=== PATIENT | male | born 1980 | race Caucasian/White ===

== ENCOUNTER 2017-11-26 13:02 | Emergency (ER) | payer MEDICAID ==
[~2017-11-26] VITALS: Ht 167.6 cm; Wt 76.9 kg
[2017-11-26 13:36] VITALS: BP 136/94
--- NOTE | 2017-11-26 15:01 | NUR ---
PT AMBULATED TO BED 4
[2017-11-26] MEDS ORDERED: MORPHINE SULFATE 4 MG/ML SYR IM ONE (15:15)
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
--- NOTE | 2017-11-26 15:30 | NUR ---
WOUND CARE AT BEDSIDE BY EMT.
[2017-11-26 16:25] VITALS: BP 142/83
== END 2017-11-26 16:25 | disposition home or self-care (01) ==
LOC: MED 13:02
DX: S61.213A Laceration without foreign body of left middle finger without damage to nail, initial encounter (principal); E11.9 Type 2 diabetes mellitus without complications; Z79.899 Other long term (current) drug therapy; X58.XXXA Exposure to other specified factors, initial encounter; Y93.89 Activity, other specified; Y92.89 Other specified places as the place of occurrence of the external cause; Y99.8 Other external cause status
CPT/HCPCS: 96372; 99283; J2270

== ENCOUNTER 2019-11-27 01:10 | Inpatient (IN) | payer MEDICAID ==
[2019-11-27] VITALS (11 sets, daily range): BP systolic 97–163; BP diastolic 54–103
[~2019-11-27] VITALS: Ht 175.3 cm; Wt 69.9 kg
--- NOTE | 2019-11-27 01:15 | NUR ---
PT TAKEN TO BED 7
[2019-11-27] MEDS ORDERED: ONDANSETRON 4 MG/2 ML VIAL IVP ONE (01:20)
[2019-11-27] MEDS ORDERED: NACL 0.9% 1,000 ML IV ONE ×2 (01:20)
--- NOTE | 2019-11-27 01:21 | NUR ---
Dr. Madison examining patient.
[2019-11-27] MEDS ORDERED: LORazepam 2 MG/ML VIAL IVP ONE ×2 (01:25→02:25)
--- NOTE | 2019-11-27 01:38 | NUR ---
PT REFUSED TO ANSWER ASSESSMENT QUESTIONS AT THIS TIME. PT IS BEING RUDE AND UNCOOPERATIVE WITH CARE. WILL TRY AGAIN LATER TO GET ASSESSMENT DETAILS.
--- NOTE | 2019-11-27 01:40 | NUR ---
39 Y/O MALE C/O VOMITTING X TODAY. HAS > 6 VOMITTING EPISODES IN ER. LUNG SOUNDS CLEAR ALL THROUGHOUT.ABD IS SOFT, FLAT, GENERALIZED TENDERNESS OF THE ABD. ACTIVE BS. A&OX4. NKA. PMH: TYPE 1 DIABETES.
[2019-11-27 01:45] LABS: ALBUMIN 4.6 g/dL (3.4-5.0); ANION GAP 32.5 (8-16); CARBON DIOXIDE 15.5 mmol/L (21-32); CREATININE 1.4 mg/dL (0.6-1.3); TOTAL BILIRUBIN 0.6 mg/dL (0.0-1.0)
[2019-11-27 01:49] LABS: BASOPHILS # (AUTO) 0.1 K/uL (0.00-0.22); BASOPHILS % (AUTO) 0.8 % (0.0-2.0); EOSINOPHILS % (AUTO) 0.1 % (0.0-4.0); HEMATOCRIT 49.7 % (36-52); HEMOGLOBIN 16.9 g/dL (12.0-18.0); LYMPHOCYTES # (AUTO) 1.2 K/uL (2.0-11.5); LYMPHOCYTES % (AUTO) 9.9 % (20.5-51.1); MEAN CORPUSCULAR HEMOGLOBIN 31 pg (27-31); MEAN CORPUSCULAR HGB CONC 34 g/dL (33-37); MEAN CORPUSCULAR VOLUME 92.2 fL (80-94); MONOCYTES # (AUTO) 0.4 K/uL (0.8-1.0); MONOCYTES % (AUTO) 3.1 % (1.7-9.3); NEUTROPHILS # (AUTO) 10.3 K/uL (1.8-7.7); NEUTROPHILS % (AUTO) 86.1 % (42.2-75.2); PLATELET COUNT (AUTO) 295 K/uL (140-450)
[2019-11-27 01:55] LABS: APPEARANCE,URINE CLEAR (CLEAR); BILIRUBIN,URINE NEGATIVE (NEGATIVE); BLOOD, URINE 1+ (NEGATIVE); COLOR,URINE YELLOW (YELLOW); LEUKOCYTE ESTERASE ,URINE NEGATIVE (NEGATIVE); NITRITE, URINE NEGATIVE (NEGATIVE); PH,URINE 5.5 (5.0-9.0); UGLUCOSE 3+ (NEGATIVE)
[2019-11-27] MEDS ORDERED: INSULIN REGULAR, HUMAN 100 UNIT in NACL 0.9% 100 ML IV SCH ×2 (01:55)
[2019-11-27] MEDS ORDERED: DEXTROSE 50% 50 ML SYR IVP PRN ×3 (01:55→22:10)
[2019-11-27 02:05] LABS: WBC,URINE 0-5 /HPF (0-5)
[2019-11-27] MEDS ORDERED: MORPHINE SULFATE 4 MG/ML SYR IVP ONE (02:15)
[2019-11-27] MEDS ORDERED: ONDANSETRON 4 MG/2 ML VIAL IVP PRN (02:20)
[2019-11-27] MEDS ORDERED: HYDROcodone/APAP 7.5/325 MG 1 TAB PO PRN (02:20)
[2019-11-27] MEDS ORDERED: ACETAMINOPHEN 325 MG TAB PO PRN (02:20)
[2019-11-27] MEDS: BLOOD GLUCOSE MONITORING 1 DEV DEV FS SCH ×26 (02:20→22:05)
[2019-11-27] MEDS ORDERED: diphenhydrAMINE 50 MG/ML VIAL IVP ONE (02:25)
[2019-11-27] MEDS ORDERED: METOCLOPRAMIDE 10 MG/2 ML INJ VIAL IVP ONE (02:25)
[2019-11-27] MEDS ORDERED: POTASSIUM CHL 20 MEQ/NACL 0.9% 1,000 ML IV ONE ×2 (02:45→05:02)
[2019-11-27 02:53] LABS: PROTHROMBIN TIME 9.2 secs (10.8-13.4)
[2019-11-27] MEDS ORDERED: INSULIN REGULAR IV SCH ×2 (02:55)
[2019-11-27] MEDS ORDERED: POTASSIUM CHLORIDE 20 MEQ in NACL 0.9% 1,000 ML IV SCH (02:55)
[2019-11-27] MEDS ORDERED: LORazepam 2 MG/ML VIAL IVP SCH (02:55)
[2019-11-27] MEDS ORDERED: HYDROmorphone 1 MG/ML AMP IVP SCH (02:55)
[2019-11-27] MEDS ORDERED: HUMAN IV SCH ×2 (02:55)
[2019-11-27] MEDS ORDERED: NACL 0.9% IV SCH ×2 (02:55)
[2019-11-27 02:56] LABS: FREE T4 (FREE THYROXINE) 1.5 ng/dL (0.76-1.46); MAGNESIUM 2.2 mg/dL (1.8-2.4); PHOSPHORUS 5.5 mg/dL (2.5-4.9); THYROID STIMULATING HORMONE 2.27 uIU/mL (0.34-3.74)
--- NOTE | 2019-11-27 03:40 | NUR ---
X-Ray at bedside.
--- NOTE | 2019-11-27 03:50 | NUR ---
PATIENT BROUGHT INTO ICU BED 3 VIA GURNEY, AMBULATED TO BED WITH STANDBY ASSIST. RECEIVED REPORT FROM ER NURSE. RESIDENT MD AT BEDSIDE TO ASSESS PATIENT. PT ANOx4, OPENS EYES SPONTANEOUSLY, FOLLOWS ALL COMMANDS. EYES PERRLA, BRISK 3 MM. SKIN WARM AND DRY, TEMPERATURE LOW 96.0 TEMPORAL. ON ROOM AIR, LUNG SOUNDS CLEAR ALL THROUGHOUT, NO SIGNS OF SOB OR DISTRESS, BREATHING IS UNLABORED. CONNECTED TO RUBY ON RAILS SOFTWARE DEVELOPER, HEART RATE 115 BPM. RIGHT FOREARM PERIPHERAL IV 20G, FLUSHED AND PATENT WITHOUT SYMPTOMS, INFUSING HUMULIN INSULIN DRIP AT 3UNITS/HR-3ML/HOUR. AND LEFT AC 20G, FLUSHED AND ASYMPTOMATIC INFUSING 20 MEQ KCL WITH NS @ 1000ML/HR. DRY WEIGHT USED 70 KG. ABDOMEN IS SOFT AND NONTENDER WITH ACTIVE BOWEL SOUNDS, PT IS CONTINENT, URINAL AT BEDSIDE. SKIN INTACT. ORIENTED TO CALL LIGHT AND UNIT. ORIENTED TO TREATMENT PLAN. SIDERAILS UP x3, BED LOCKED AND IN LOWEST POSITION. MRSA SWAB COLLECTED AND TAKEN TO LAB. WILL CONTINUE TO MONITOR.
--- NOTE | 2019-11-27 03:50 | NUR ---
Patient will be admitted to care of dr. hutson. Admited to icu . Will go to room 3. Belongings list completed. Report to patience parra.
[2019-11-27 04:29] LABS: ANION GAP 21.2 (8-16); CARBON DIOXIDE 20.2 mmol/L (21-32); POTASSIUM 4.4 mmol/L (3.5-5.1)
[2019-11-27 04:30] LABS: BARBITURATE, URINE NEGATIVE ng/ml (NEG <=200); BENZODIAZEPINE, URINE NEGATIVE ng/mL (NEG <=200); CANNABINOID, URINE POSITIVE ng/mL (NEG <=50); COCAINE, URINE NEGATIVE ng/mL (NEG <=300); OPIATE, URINE NEGATIVE ng/mL (NEG <=2000); PHENCYCLIDINE SCREEN,URINE NEGATIVE ng/mL (NEG <=25)
--- NOTE | 2019-11-27 04:30 | NUR ---
PROVIDED PATIENT WITH ORAL CARE SUPPLIES AND HYGIENE SUPPLIES. PATIENT INDEPENDENT. MORNING CARE DONE.
[2019-11-27 04:34] LABS: MAGNESIUM 1.7 mg/dL (1.8-2.4)
[2019-11-27 04:35] LABS: CHOL/HDL RATIO 8.8 (1-4.5)
[2019-11-27] MEDS ORDERED: INSU100I7 SQ (05:05)
[2019-11-27] MEDS ORDERED: HUM SUBQ (05:05)
[2019-11-27] MEDS ORDERED: ENAL-197 PO ×2 (05:05→18:36)
[2019-11-27] MEDS ORDERED: MAG SULF 2000 MG/WATER PREMIX 50 ML IV SCH (05:10)
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
--- NOTE | 2019-11-27 05:30 | NUR ---
BLOOD SUGAR 142, DECREASED INSULIN DRIP TO 0.05UNITS/KG PER PROTOCOL.
--- NOTE | 2019-11-27 06:45 | NUR ---
BLOOD SUGAR 118, CALLED RESIDENT MD TO CONFIRM PROTOCOL. OK TO START D51/2NS FLUIDS AND D/C NS WITH 20 MEQ KCL. WILL CARRY OUT.
[2019-11-27] MEDS: DEXT 5% / NACL 0.45% 1,000 ML IV SCH ×3 (06:54→17:06)
--- NOTE | 2019-11-27 08:00 | NUR ---
PATIENT ALERT AND ORIENTED X4. ABLE TO VOICE HIS NEEDS TO STAFF. RESPIRATION EVEN AND UNLABORED. ORAL MUCOSA PINK AND MOIST. NO SIGNS OF DISTRESS OBSERVED. SKIN WARM, DRY AND INTACT. NO COMPLAINTS OF PAIN OR ANY DISCOMFORT. PT ON IV HYDRATION, INSULIN DRIP. ABDOMEN SOFT AND NON TENDER. USES URINAL TO VOID. LAST BM WAS YESTERDAY MORNING. DORSAL PEDIS PULSES PALPABLE AND WNL. HAND DIRECTOR SALES AND TRADE MARKETING STRONG. NO SIGNS OF WEAKNESS NOTED. EYE OPENING SPONTANEOUSLY. POC REVIEWED. STANDARD MEASURES PERFORMED. WILL CONTINUE TO MONITOR PATIENT.
[2019-11-27] MEDS: DOCUSATE SODIUM 100 MG GELCAP PO SCH ×2 (08:27→20:50)
[2019-11-27] MEDS: ENALAPRIL 10 MG TAB PO SCH (08:27)
--- NOTE | 2019-11-27 08:34 | NUR ---
PATIENT HAS BEEN SCREENED AND CATEGORIZED HIGH NUTRITION RISK. PATIENT WILL BE SEEN WITHIN 1-2 DAYS OF ADMISSION. 11/27/19-11/28/[address]
[2019-11-27 08:45] LABS: ANION GAP 15.8 (8-16); CREATININE 0.9 mg/dL (0.6-1.3); POTASSIUM 3.8 mmol/L (3.5-5.1)
[2019-11-27 08:50] LABS: MAGNESIUM 1.8 mg/dL (1.8-2.4); PHOSPHORUS 2.6 mg/dL (2.5-4.9)
[2019-11-27] MEDS ORDERED: POTASSIUM CHL 20 MEQ/NACL 0.9% 1,000 ML IV SCH (10:40)
[2019-11-27 11:17] LABS: ANION GAP 17.9 (8-16); CARBON DIOXIDE 20.9 mmol/L (21-32); POTASSIUM 3.8 mmol/L (3.5-5.1)
[2019-11-27 11:18] LABS: CREATININE 0.9 mg/dL (0.6-1.3)
--- NOTE | 2019-11-27 11:19 | NUR ---
CALLED DR. GILBERT AT THIS TIME. CLAFIED ORDER FOR KCL 20MEQ IV. ORDER CHANGED FROM 200ML TO 100ML PER HOUR. PATIENT MADE AWARE.
[2019-11-27 12:53] LABS: MAGNESIUM 2.2 mg/dL (1.8-2.4); PHOSPHORUS 2.8 mg/dL (2.5-4.9)
--- NOTE | 2019-11-27 13:08 | NUR ---
11/27/19 RD INITIAL ASSESSMENT COMPLETED PLEASE REFER TO NUTRITION ASSESSMENT UNDER CARE ACTIVITY FOR ESTIMATED NUTRITIONAL NEEDS. 1. CONTINUE NPO MEDICALLY APPROPRIATE 2. IF/WHEN PATIENT IS MEDICALLY CLEARED CONSIDER ADVANCING TO [facility] 60GM DIET 3. RD PROVIDED NUTRITION EDUCATION ON DIABETES. PT ACCEPTED 4. RD TO FOLLOW-UP 3-5 DAYS, MODERATE RISK IRINA QUINTERO RD
--- NOTE | 2019-11-27 13:11 | NUR ---
DC PLANN[age] YRS OLD MALE PATIENT WAS ADMITTED FROM HOME WITH A DX OF DKA. PT HAS A HX OF DM AND HYPERTENSION . BLOOD SUGAR 435 AND ANION GAP 28.5 .CXRAY (-) ,STARTED INSULIN DRIP, IVF HYDRATION WITH NS , HUMALOG SLIDING SCALE . SEEN BY TELECOMMUNICATIONS LINE MECHANIC DR BECERRA RECOMMENDED TO CONTINUE DKA PROTOCOL . DC PLAN TO GO HOME WHEN STABLE Addendum: 11/30/19 at 1103 by Jayna De Luna CM PATIENT WILL BE DISCHARGING TODAY, NO NEEDS. Addendum: 11/30/19 at 1108 by Jayna De Luna CM WRONG ENTRY: PATIENT WILL BE STAYING TODAY DUE TO LOW POTASSIUM AND MAG.
[2019-11-27] MEDS ORDERED: SERTRALINE 50 MG TAB PO SCH (13:30)
[2019-11-27] MEDS ORDERED: LORazepam 2 MG/ML VIAL IM/IVP PRN (16:15)
--- NOTE | 2019-11-27 16:40 | NUR ---
PATIENT BECAME AGITATED, PULLING IV TUBINGS AND REFINERY OPERATOR VAPOR RECOVERY UNIT WIRES, REFUSING CARE. PT REQUESTING FOR FOOD BUT PT IS CURRENTLY ON NPO EXCEPT MEDS.OFFERED SOME JELLO PER MD BUT STILL REFUSE. PT WANTED TO SIGN AMA AT THIS TIME. DR. FERRERA MADE AWARE AND CAME TO THE UNIT TO SEE AND TALK TO THE PATIENT. MD ORDERED FOR ATIVAN 1MG. PT CALM DOWN AND PARTICIPATED IN THE ROUTINES. PT RESTING AT THIS TIME. WILL CONTINUE TO MONITOR.
[2019-11-27 16:53] LABS: ANION GAP 13.3 (8-16); CREATININE 0.8 mg/dL (0.6-1.3); POTASSIUM 3.3 mmol/L (3.5-5.1)
[2019-11-27 16:58] LABS: PHOSPHORUS 2.8 mg/dL (2.5-4.9)
[2019-11-27] MEDS ORDERED: LORazepam 2 MG/ML VIAL IVP PRN (18:05)
[2019-11-27] MEDS ORDERED: POTASSIUM CHLORIDE 40 MEQ, LIDOCAINE MPF 1% 25 MG in NACL 0.9% 250 ML IV SCH (18:30)
--- NOTE | 2019-11-27 19:20 | NUR ---
PATIENT STABLE. NO FURTHER COMPLAINTS MADE. NO DISTRESS NOTED. PT RESTING IN BED. REPORT GIVEN TO SUPERVISOR SHUTTLE FITTING NURSE FOR CONTINUITY OF CARE.
--- NOTE | 2019-11-27 19:20 | NUR ---
RECEIVED REPORT FROM DAY SHIFT, PT HAS EYES CLOSED, AROUSABLE, IRRITABLE. PT AOX4, NOT WANTING TO HAVE ANY TEST/CARE DONE @ THIS TIME. REASSURED PT THAT WE ARE PROVIDING CARE FOR HIM IN THE ICU SETTING AND THAT IS NPO @ THIS TIME. LUNGS CLEAR ST 100S NO ECTOPY NOTED. NO EDEMA, PALPABLE PULSES TO BILATERAL UPPER AND LOWER EXTREMITIES. ABDOMEN SOFT NON DISTENDED. PT VOIDING IN URINAL CLEAR YELLOW URINE. SKIN INTACT. PERIPHERAL IVS TO L FA L HAND AND R FA PATENT INTACT. INSULIN DRIP @ 0.05 UNITS/KG/HR PER PROTOCOL RUNNING @ 3.5ML/HR, PT WT 70 KG. D5 1/2 NS @ 250 ML/HR. BED LOCKED IN LOWEST POSITION. CALL LIGHT WITHIN REACH. PT PT STATING HE WANTS TO LEAVE AMA. DR ARELY HOPE MD STATED HE WOULD TALK TO PT
--- NOTE | 2019-11-27 19:30 | NUR ---
MD @ BEDSIDE TALKING TO PT, PT WANTING TO LEAVE BUT IS AGREEABLE TO PLAN OF CARE IF HE CAN EAT. MD STATED HE WOULD WRITE DIET ORDERS. NO OTHER ACUTE DISTRESS NOTED. WILL CONTINUE TO OBSERVE.
--- NOTE | 2019-11-27 19:45 | NUR ---
PT DENIES SUICIDAL IDEATION @ THIS TIME, PT DENIES WANTING TO HURT HIMSELF. PT STATES HE IS ONLY HUNGRY AND WILL FOLLOW POC AFTER HE EATS. VSS. WILL CONTINUE TO OBSERVE
[2019-11-27] MEDS: LORazepam 1 MG TAB PO SCH (20:50)
[2019-11-27] MEDS: QUEtiapine FUMARATE 25 MG TAB PO SCH (20:50)
[2019-11-27] MEDS ORDERED: ATORVASTATIN 20 MG TAB PO SCH (21:00)
[2019-11-27 21:12] LABS: ANION GAP 12.5 (8-16); CARBON DIOXIDE 23.8 mmol/L (21-32); CREATININE 0.8 mg/dL (0.6-1.3); POTASSIUM 3.3 mmol/L (3.5-5.1)
[2019-11-27 21:16] LABS: MAGNESIUM 1.9 mg/dL (1.8-2.4); PHOSPHORUS 2.7 mg/dL (2.5-4.9)
--- NOTE | 2019-11-27 22:06 | NUR ---
PHONE CALL TO DR FARRAR; MADE AWARE ANION GAP AT 2039 12.5; PTS BS AT THIS TIME 178, AWARE PT HAS SANDWICH;AND PT STILL ON INSULIN DRIP . PHYSICIAN SAID HE WILL PUT IN NEW ORDERS.AWAITING
--- NOTE | 2019-11-27 23:25 | NUR ---
PT AMB TO BEDSIDE COMMODE WITH STANDBY ASSIST, X1 BM NOTED, SOFT AND VOIDED 500 ML CLEAR YELLOW URINE.
[2019-11-28] VITALS: BP 124/55
[2019-11-28 02:00] VITALS: BP 114/65
--- NOTE | 2019-11-28 02:30 | NUR ---
PT HAS EYES CLOSED; AROUSABLE. NO ACUTE DISTRESS NOTED. VSS. WILL CONTINUE TO OBSERVE
[2019-11-28] MEDS: NACL 0.9% 1,000 ML IV SCH ×3 (03:55→20:45)
[2019-11-28 04:00] VITALS: BP 130/79
[2019-11-28] MEDS: LORazepam 1 MG TAB PO SCH ×3 (05:22→20:45)
[2019-11-28 06:00] VITALS: BP 122/73
--- NOTE | 2019-11-28 06:00 | NUR ---
PM SHIFT UNEVENTFUL, PT DOES NOT HAVE THOUGHTS OF SUICIDAL IDEATION @ THIS TIME. VSS. NO ACUTE DISTRESS. WILL CONTINUE TO OBSERVE.
[2019-11-28 06:13] LABS: BASOPHILS % (AUTO) 0.8 % (0.0-2.0); EOSINOPHILS # (AUTO) 0.1 K/uL (0-0.4); EOSINOPHILS % (AUTO) 1.9 % (0.0-4.0); HEMATOCRIT 37.6 % (36-52); LYMPHOCYTES # (AUTO) 1.8 K/uL (2.0-11.5); LYMPHOCYTES % (AUTO) 35.5 % (20.5-51.1); MEAN CORPUSCULAR HEMOGLOBIN 32 pg (27-31); MEAN CORPUSCULAR HGB CONC 35 g/dL (33-37); MONOCYTES # (AUTO) 0.3 K/uL (0.8-1.0); MONOCYTES % (AUTO) 5.9 % (1.7-9.3); NEUTROPHILS # (AUTO) 2.9 K/uL (1.8-7.7); NEUTROPHILS % (AUTO) 55.9 % (42.2-75.2); PLATELET COUNT (AUTO) 242 K/uL (140-450); RED BLOOD CELL COUNT(AUTO) 4.14 MIL/uL (4.20-6.10); RED CELL DISTRIBUTION WIDTH 12.9 % (11.6-13.7); WHITE BLOOD COUNT (AUTO) 5.1 K/uL (4.8-10.8)
[2019-11-28 07:01] LABS: MAGNESIUM 1.6 mg/dL (1.8-2.4)
[2019-11-28 07:15] LABS: ANION GAP 17.1 (8-16); CREATININE 0.8 mg/dL (0.6-1.3); POTASSIUM 4.1 mmol/L (3.5-5.1)
[2019-11-28] MEDS: BLOOD GLUCOSE MONITORING 1 DEV DEV FS SCH ×5 (07:30→20:31)
--- NOTE | 2019-11-28 07:35 | NUR ---
REPORT GIVEN TO AM SHIFT TELE NURSE HEIDI GROSSMAN. NO ACUTE DISTRESS, PT DENIES SUICIDAL IDEATION. SITTER @ BEDSIDE, BED LOCKED IN LOWEST POSITION. SI PRECAUTIONS IN PLACE.
--- NOTE | 2019-11-28 07:40 | NUR ---
RECEIVED BEDSIDE REPORT FROM ED NURSE. PT RESTING IN BED. ABLE TO MAKE NEEDS KNOWN. RESPIRATIONS EVEN AND UNLABORED WITH NO SOB OR RESPIRATORY DISTRESS. SKIN WARM AND DRY TO TOUCH. IV SITES IN LEFT HAND 20G, LFA 20G, AND RFA 20G IS CLEAN, DRY, AND INTACT. SAFETY MEASURES IN PLACE. WILL CONTINUE TO MONITOR
[2019-11-28 08:00] VITALS: BP 123/64
[2019-11-28] MEDS: INSULIN LANTUS 100 UNITS/ML 10 ML VIAL SUBQ SCH ×2 (09:42→20:36)
[2019-11-28] MEDS: INSULIN LISPRO SLIDING SCALE 100 UNITS/ML VIAL SUBQ PRN ×3 (09:43→20:36)
[2019-11-28] MEDS: SERTRALINE 50 MG TAB PO SCH (09:46)
[2019-11-28] MEDS: ATORVASTATIN 20 MG TAB PO SCH (09:47)
[2019-11-28] MEDS: FOLIC ACID 1 MG TAB PO SCH (09:47)
[2019-11-28] MEDS: DOCUSATE SODIUM 100 MG GELCAP PO SCH ×2 (09:48→20:45)
[2019-11-28] MEDS: MULTIVITAMIN 1 TAB PO SCH (09:48)
[2019-11-28] MEDS: ENALAPRIL 10 MG TAB PO SCH (09:49)
[2019-11-28] MEDS: THIAMINE 100 MG TAB PO SCH (09:49)
--- NOTE | 2019-11-28 09:50 | NUR ---
ADMINISTERED SCHED MED PRESCRIBED PER MD ORDER. PT TOLERATED WELL. MEDICATION EDUCATION PERFORMED. PT VERBALIZED UNDERSTANDING. SAFETY MEASURES IN PLACE. WILL CONTINUE TO MONITOR
[2019-11-28] MEDS ORDERED: MAG SULF 2000 MG/WATER PREMIX 50 ML IV SCH (10:00)
--- NOTE | 2019-11-28 11:30 | NUR ---
PT BLOOD SUGAR IS 180. INSULIN PER SLIDING SCALE WILL BE GIVEN WITH LUNCH. SAFETY MEASURES IN PLACE. WILL CONTINUE TO MONITOR
--- NOTE | 2019-11-28 12:55 | NUR ---
ADMINISTERED SCHED IVF PRESCRIBED PER MD ORDER. PT TOLERATED WELL. MEDICATION EDUCATION PERFORMED. PT VERBALIZED UNDERSTANDING. SAFETY MEASURES IN PLACE. WILL CONTINUE TO MONITOR
--- NOTE | 2019-11-28 13:07 | NUR ---
ADMINISTERED SCHED MED PRESCRIBED PER MD ORDER. PT TOLERATED WELL. MEDICATION EDUCATION PERFORMED. PT VERBALIZED UNDERSTANDING. SAFETY MEASURES IN PLACE. WILL CONTINUE TO MONITOR
--- NOTE | 2019-11-28 15:04 | NUR ---
HOURLY ROUNDING. PT ASLEEP IN BED. RESPONSIVE TO VERBAL AND TACTILE STIMULI. RESPIRATIONS EVEN AND UNLABORED WITH NO SOB OR RESPIRATORY DISTRESS. SKIN WARM AND DRY TO TOUCH. SAFETY MEASURES IN PLACE. WILL CONTINUE TO MONITOR
--- NOTE | 2019-11-28 16:37 | NUR ---
CALLED ARJUN OLIVEROS ([phone]) TO TALK TO SONG LYRICIST CONSTANTINO, BUT IT WENT TO VOICERostima. CALLED CONSTANTINO'S PHONE NUMBER ([phone]) AND GOT HER VOICEMAIL AND LEFT A MESSAGE. WILL CONTINUE TO MONITOR Addendum: 11/28/19 at 1639 by Nohemi Rosado RN WRONG ENTRY
--- NOTE | 2019-11-28 18:15 | NUR ---
HOURLY ROUNDING. PT RESTING IN BED. ABLE TO MAKE NEEDS KNOWN. RESPIRATIONS EVEN AND UNLABORED WITH NO SOB OR RESPIRATORY DISTRESS. SKIN WARM AND DRY TO TOUCH. SAFETY MEASURES IN PLACE.
--- NOTE | 2019-11-28 19:20 | NUR ---
ENDORSED AT BEDSIDE TO NIGHTSHIFT NURSE. PT RESTING IN BED. ABLE TO MAKE NEEDS KNOWN. RESPIRATIONS EVEN AND UNLABORED WITH NO SOB OR RESPIRATORY DISTRESS. SKIN WARM AND DRY TO TOUCH. SAFETY MEASURES IN PLACE. PT IS STABLE
--- NOTE | 2019-11-28 19:21 | NUR ---
RECEIVED BEDSIDE REPORT FROM DAY SHIFT NURSE. PT RESTING IN BED. ABLE TO MAKE NEEDS KNOWN. RESPIRATIONS EVEN AND UNLABORED WITH NO SOB OR RESPIRATORY DISTRESS. SKIN WARM AND DRY TO TOUCH. IV SITES IN LEFT HAND 20G, LFA 20G, AND RFA 20G PATENT, INTACT, AND ASYMPTOMATIC. SAFETY MEASURES IN PLACE. WILL CONTINUE TO MONITOR
[2019-11-28 20:00] VITALS: BP 111/60
[2019-11-28] MEDS: QUEtiapine FUMARATE 25 MG TAB PO SCH (20:44)
--- NOTE | 2019-11-28 20:45 | NUR ---
GIVEN ATIVAN, SEROQUEL, HEPARIN AND LANTUS MD ORDERED. PT REFUSED COLACE. EXPLAINED BENEFIT AND RISK X3, PT STILL REFUSED. BS CHECKED, 203, GIVEN HUMALOG SLIDING SCALE. PT TOLERATED WELL.
--- NOTE | 2019-11-28 22:01 | NUR ---
PT SLEEPING IN BED COMFORTABLY. NO ACUTE DISTRESS NOTED.
[2019-11-29] VITALS: BP 95/58
--- NOTE | 2019-11-29 | NUR ---
VS CHECKED, WITHIN PT'S BASELINE. WILL CONTINUE TO MONITOR.
--- NOTE | 2019-11-29 02:30 | NUR ---
PT SLEEPING IN BED COMFORTABLY. NO ACUTE DISTRESS NOTED.
[2019-11-29 04:00] VITALS: BP 117/64
--- NOTE | 2019-11-29 04:02 | NUR ---
VS CHECKED, WITHIN PT'S BASELINE. WILL CONTINUE TO MONITOR.
[2019-11-29] MEDS: LORazepam 1 MG TAB PO SCH ×3 (05:41→20:50)
[2019-11-29] MEDS: BLOOD GLUCOSE MONITORING 1 DEV DEV FS SCH ×4 (05:43→20:57)
--- NOTE | 2019-11-29 05:43 | NUR ---
GIVEN ATIVAN MD ORDERED. PT TOLERATED WELL. BS CHECKED, 129. NO INSULIN COVERAGE NEEDED.
--- NOTE | 2019-11-29 06:58 | NUR ---
PT IN STABLE CONDITION. WILL ENDORSE TO DAY SHIFT NURSE FOR CONTINUOUS CARE.
--- NOTE | 2019-11-29 07:00 | NUR ---
RECEIVED REPORT FROM REMOTE ENCODING CENTER MANAGER NURSE DELLA. PT RESTING IN BED, AOX4, AMBULATORY. DISCUSSED PLAN OF CARE AND VERBALIZED UNDERSTANDING. IV ON LEFT HAND #20 RUNNING NS @ 70ML/HR, LEFT AC #20G S/L AND RIGHT FA #20G S/L. SKIN INTACT. NO S/S OF RESPIRATORY DISTRESS OR DISCOMFORT NOTED AT THIS TIME. WILL CONTINUE TO MONITOR.
[2019-11-29 07:20] LABS: BASOPHILS # (AUTO) 0.1 K/uL (0.00-0.22); BASOPHILS % (AUTO) 2.7 % (0.0-2.0); EOSINOPHILS # (AUTO) 0.1 K/uL (0-0.4); EOSINOPHILS % (AUTO) 2.3 % (0.0-4.0); HEMOGLOBIN 13.2 g/dL (12.0-18.0); LYMPHOCYTES # (AUTO) 1.9 K/uL (2.0-11.5); LYMPHOCYTES % (AUTO) 50.1 % (20.5-51.1); MEAN CORPUSCULAR HEMOGLOBIN 32 pg (27-31); MEAN CORPUSCULAR HGB CONC 35 g/dL (33-37); MEAN CORPUSCULAR VOLUME 91.2 fL (80-94); MONOCYTES # (AUTO) 0.3 K/uL (0.8-1.0); MONOCYTES % (AUTO) 7.6 % (1.7-9.3); NEUTROPHILS # (AUTO) 1.4 K/uL (1.8-7.7); NEUTROPHILS % (AUTO) 37.3 % (42.2-75.2); PLATELET COUNT (AUTO) 228 K/uL (140-450); RED BLOOD CELL COUNT(AUTO) 4.17 MIL/uL (4.20-6.10); RED CELL DISTRIBUTION WIDTH 12.5 % (11.6-13.7); WHITE BLOOD COUNT (AUTO) 3.8 K/uL (4.8-10.8)
[2019-11-29 07:32] LABS: ANION GAP 9.8 (8-16); CARBON DIOXIDE 29.7 mmol/L (21-32); CREATININE 0.7 mg/dL (0.6-1.3); POTASSIUM 3.5 mmol/L (3.5-5.1)
[2019-11-29 07:40] LABS: MAGNESIUM 1.7 mg/dL (1.8-2.4); PHOSPHORUS 3.9 mg/dL (2.5-4.9)
[2019-11-29 08:00] VITALS: BP 139/84
[2019-11-29] MEDS ORDERED: MAGNESIUM OXIDE 400 MG TAB PO SCH (08:30)
[2019-11-29] MEDS: ATORVASTATIN 20 MG TAB PO SCH (09:21)
[2019-11-29] MEDS: THIAMINE 100 MG TAB PO SCH (09:21)
[2019-11-29] MEDS: MULTIVITAMIN 1 TAB PO SCH (09:21)
[2019-11-29] MEDS: ENALAPRIL 10 MG TAB PO SCH (09:22)
[2019-11-29] MEDS: DOCUSATE SODIUM 100 MG GELCAP PO SCH ×3 (09:22→21:00)
[2019-11-29] MEDS: FOLIC ACID 1 MG TAB PO SCH (09:22)
[2019-11-29] MEDS: SERTRALINE 50 MG TAB PO SCH (09:23)
[2019-11-29] MEDS: INSULIN LANTUS 100 UNITS/ML 10 ML VIAL SUBQ SCH ×2 (09:25→20:55)
--- NOTE | 2019-11-29 09:25 | NUR ---
SCHEDULED MEDICATIONS GIVEN AND TOLERATED WELL. BLOOD GLUCOSE 131- LANTUS INSULIN GIVEN AND TOLERATED WELL. MAG OX GIVEN FOR LOW MAGNESIUM LEVEL 1.7 AND TOLERATED WELL. NO S/S OF RESPIRATORY DISTRESS OR DISCOMFORT NOTED AT THIS TIME. WILL CONTINUE TO MONITOR.
[2019-11-29] MEDS: INSULIN LISPRO SLIDING SCALE 100 UNITS/ML VIAL SUBQ PRN ×3 (12:17→20:56)
--- NOTE | 2019-11-29 12:17 | NUR ---
BLOOD GLUCOSE 180- INSULIN COVERAGE GIVEN AND TOLERATED WELL. NO S/S OF RESPIRATORY DISTRESS OR DISCOMFORT NOTED AT THIS TIME. WILL CONTINUE TO MONITOR.
--- NOTE | 2019-11-29 13:00 | NUR ---
PT REQUESTED TO TAKE A SHOWER. IV SITES PROTECTED WITH PLASTIC AND TAPE. ROULA IQBAL ASSISTED PT TO SHOWER.
--- NOTE | 2019-11-29 14:17 | NUR ---
PT SEEMS TO HAVE MISPLACED HIS WHITE SOCKS AND IS UPSET PACING HIS ROOM, ELEVATING HIS VOICE AND NOW REFUSING TO TAKE HIS SCHEDULED MEDICATION ATIVAN. NO S/S OF RESPIRATORY DISTRESS OR DISCOMFORT NOTED AT THIS TIME. WILL CONTINUE TO MONITOR.
--- NOTE | 2019-11-29 14:32 | NUR ---
PT AGREED TO TAKE ATIVAN. PT TOLERATED WELL. NO S/S OF RESPIRATORY DISTRESS OR DISCOMFORT NOTED AT THIS TIME. WILL CONTINUE TO MONITOR.
--- NOTE | 2019-11-29 17:00 | NUR ---
BLOOD GLUCOSE 178- INSULIN COVERAGE GIVEN AND TOLERATED WELL. NO S/S OF RESPIRATORY DISTRESS OR DISCOMFORT NOTED AT THIS TIME. WILL CONTINUE TO MONITOR.
--- NOTE | 2019-11-29 19:20 | NUR ---
RECEIVED REPORT FROM DAY SHIFT NURSE. PLAN OF CARE DISCUSSED. PATIENT SITTING IN BED. WITH G20 ON L AC AND L FA. RESPIRATION ARE EVEN AND UNLABORED. SKIN IS WARM AND DRY. DENIES ANY DISCOMFORT AT THIS TIME. PATIENT KEPT COMFORTABLE. WILL CONTINUE TO MONITOR.
[2019-11-29] MEDS: QUEtiapine FUMARATE 25 MG TAB PO SCH (20:49)
--- NOTE | 2019-11-29 20:58 | NUR ---
PATIENT IN BED SITTING. SCHEDULED MEDICATIONS GIVEN. REFUSED COLACE. TEACHING GIVEN ON MEDICATION. STILL REFUSED. BLOOD SUGAR 214. COVERAGE GIVEN. NO COMPLAINS MADE AT THIS TIME. PATIENT KEPT COMFORTABLE. WILL CONTINUE TO MONITOR.
--- NOTE | 2019-11-29 22:08 | NUR ---
ROUNDS DONE. PATIENT SLEEPING. NO SIGNS OF DISTRESS NOTED. SAFETY MEASURES IN PLACE. WILL CONTINUE TO MONITOR.
[2019-11-30] VITALS: BP 154/94
--- NOTE | 2019-11-30 01:05 | NUR ---
VITAL SIGNS TAKEN. BP 154/94 HR 117. PATIENT ASYMPTOMATIC. DENIES ANY FEELING OF DISCOMFORT. VERBALIZED FEELING OF STRESS. WILL CONTINUE TO MONITOR.
--- NOTE | 2019-11-30 02:06 | NUR ---
ROUNDS DONE. PATIENT LYING IN BED USING HIS CELLULAR PHONE. DENIES ANY PAIN OR DISCOMFORT AT THIS TIME. SAFETY MEASURES IN PLACE. KEPT COMFORTABLE. WILL CONTINUE TO MONITOR.
[2019-11-30] MEDS: LORazepam 1 MG TAB PO SCH ×3 (06:03→22:00)
[2019-11-30] MEDS: BLOOD GLUCOSE MONITORING 1 DEV DEV FS SCH ×4 (06:07→21:56)
--- NOTE | 2019-11-30 06:08 | NUR ---
BLOOD SUGAR 108. NO COVERAGE NEEDED. SCHEDULED MEDS GIVEN. DENIES ANY PAIN OR DISCOMFORT AT THIS TIME. KEPT COMFORTABLE. WILL CONTINUE TO MONITOR.
--- NOTE | 2019-11-30 07:20 | NUR ---
ENDORSED PATIENT TO DAY SHIFT NURSE. PLAN OF CARE DISCUSSED. PATIENT IN STABLE CONDITION. NO COMPLAINS MADE. KEPT COMFORTABLE. SAFETY MEASURES IN PLACE.
--- NOTE | 2019-11-30 07:21 | NUR ---
Received report from pm nurse Tavares. Pt resting in bed, awake, no signs of distress. No c/o discomfort/pain.
--- NOTE | 2019-11-30 07:45 | NUR ---
Pt transferred from room 109B to 110A. Pt ambulated with steady gait. All belongings transferred with pt.
[2019-11-30 08:00] VITALS: BP 147/84
[2019-11-30 08:25] LABS: BASOPHILS # (AUTO) 0.1 K/uL (0.00-0.22); BASOPHILS % (AUTO) 1.7 % (0.0-2.0); EOSINOPHILS # (AUTO) 0.1 K/uL (0-0.4); EOSINOPHILS % (AUTO) 1.4 % (0.0-4.0); HEMATOCRIT 42.9 % (36-52); LYMPHOCYTES # (AUTO) 1.3 K/uL (2.0-11.5); LYMPHOCYTES % (AUTO) 33.3 % (20.5-51.1); MEAN CORPUSCULAR HEMOGLOBIN 32 pg (27-31); MEAN CORPUSCULAR HGB CONC 35 g/dL (33-37); MEAN CORPUSCULAR VOLUME 90.4 fL (80-94); MONOCYTES # (AUTO) 0.3 K/uL (0.8-1.0); MONOCYTES % (AUTO) 8.7 % (1.7-9.3); NEUTROPHILS # (AUTO) 2.1 K/uL (1.8-7.7); NEUTROPHILS % (AUTO) 54.9 % (42.2-75.2); PLATELET COUNT (AUTO) 260 K/uL (140-450); RED BLOOD CELL COUNT(AUTO) 4.75 MIL/uL (4.20-6.10); RED CELL DISTRIBUTION WIDTH 12.6 % (11.6-13.7); WHITE BLOOD COUNT (AUTO) 3.9 K/uL (4.8-10.8)
[2019-11-30 08:39] LABS: ANION GAP 11.6 (8-16); CARBON DIOXIDE 31.4 mmol/L (21-32); CREATININE 0.9 mg/dL (0.6-1.3)
[2019-11-30 08:46] LABS: MAGNESIUM 1.7 mg/dL (1.8-2.4); PHOSPHORUS 4.3 mg/dL (2.5-4.9)
[2019-11-30] MEDS ORDERED: FOLI1TAB90 PO (08:59)
[2019-11-30] MEDS ORDERED: THIA-34 PO (08:59)
[2019-11-30] MEDS ORDERED: QUET25TA46 PO (08:59)
[2019-11-30] MEDS ORDERED: VAS10 PO (08:59)
[2019-11-30] MEDS ORDERED: ATOR20TA40 PO (08:59)
[2019-11-30] MEDS ORDERED: SERT-146 PO (08:59)
[2019-11-30] MEDS ORDERED: MULT-405 PO (08:59)
[2019-11-30] MEDS ORDERED: POTASSIUM CHLORIDE 10 MEQ TABER PO SCH (09:10)
[2019-11-30] MEDS ORDERED: MAGNESIUM OXIDE 400 MG TAB PO SCH (09:10)
--- NOTE | 2019-11-30 09:15 | NUR ---
Report given to Seth GROSSMAN.
--- NOTE | 2019-11-30 09:16 | NUR ---
Received patient from [facility]. Patient AOX4, respirations even and unlabored on room air. Denies pain. Updated board. Updated patient with plan of care, he verbalized understanding. IV sites intact, currently saline locked. Call light within reach, will continue to monitor patient.
[2019-11-30] MEDS: FOLIC ACID 1 MG TAB PO SCH (09:35)
[2019-11-30] MEDS: DOCUSATE SODIUM 100 MG GELCAP PO SCH ×2 (09:35→21:00)
[2019-11-30] MEDS: ENALAPRIL 10 MG TAB PO SCH (09:35)
[2019-11-30] MEDS: SERTRALINE 50 MG TAB PO SCH (09:35)
[2019-11-30] MEDS: THIAMINE 100 MG TAB PO SCH (09:35)
[2019-11-30] MEDS: MULTIVITAMIN 1 TAB PO SCH (09:35)
[2019-11-30] MEDS: ATORVASTATIN 20 MG TAB PO SCH (09:35)
[2019-11-30] MEDS: INSULIN LANTUS 100 UNITS/ML 10 ML VIAL SUBQ SCH ×2 (09:38→22:06)
--- NOTE | 2019-11-30 09:40 | NUR ---
Ordered medications given. Patient tolerated them well. Patient has no complaints at this time. Call light within reach, will continue to monitor patient.
[2019-11-30] MEDS ORDERED: POTASSIUM CHLORIDE 40 MEQ, LIDOCAINE MPF 1% 25 MG in NACL 0.9% 250 ML IV SCH (10:00)
[2019-11-30] MEDS: INSULIN LISPRO SLIDING SCALE 100 UNITS/ML VIAL SUBQ PRN (12:12)
--- NOTE | 2019-11-30 12:12 | NUR ---
Blood sugar 152, insulin coverage per protocol. Patient has no complaints at this time. Right FA IV leaking, IV removed, IV catheter intact, minimal bleeding noted. Patient now sitting on side of bed eating lunch. Will continue to monitor patient.
--- NOTE | 2019-11-30 13:01 | NUR ---
Ordered medication given. Patient finished with lunch, relaxing in bed watching TV. Patient has no complaints at this time. Call light within reach, will continue to monitor patient.
[2019-11-30 15:01] LABS: MAGNESIUM 1.8 mg/dL (1.8-2.4); POTASSIUM 3.5 mmol/L (3.5-5.1)
--- NOTE | 2019-11-30 15:50 | NUR ---
Patient resting in bed, respirations even and unlabored. Patient has no complaints at this time. Safety precautions in place, call light within reach, will continue to monitor patient.
[2019-11-30 16:00] VITALS: BP 147/100
--- NOTE | 2019-11-30 17:05 | NUR ---
Patient showering, has no complaints at this time. Will continue to monitor.
--- NOTE | 2019-11-30 18:35 | NUR ---
Patient sitting by side of bed eating dinner. Patient has no complaints at this time. Will continue to monitor patient and endorse to shift supervisor melting nurse.
--- NOTE | 2019-11-30 19:30 | NUR ---
RECEIVED REPORT FORM DORENE RN DAYSHIFT AT BEDSIDE FOR CONTINUITY OF CARE, PT AOX4 AMBULATORY AND SKIN INTACT, PT HAS NO IV SITE AND NO IV FLUIDS RUNNING. AND HE DENIES PAIN AT THIS TIME.
--- NOTE | 2019-11-30 20:00 | NUR ---
PT IS AOX4, ALL REQUESTED NEEDS ATTENDED BY STAFF AND V/S FOLLOWS: T 97.8 P 120 R 18 B/P 141/88 02 100% ON ROOM AIR. PT FINGERSTICK IS 150 NO HUMALOG COVERAGE NEEDED. ALL UNIVERSAL FALLS PRECAUTIONS IN PLACE.
--- NOTE | 2019-11-30 21:30 | NUR ---
PT GIVEN DUE MEDICATIONS EXCEPT COLACE AND HEPARIN. PT ALSO GIVEN ORDERED 25 UNITS OF LANTUS EDUCATION REGARDING PT MEDICATION PROVIDED AT BEDSIDE. PT OFFERED DM SNACK BUT DECLINED AT THIS TIME. PT VERBALIZED UNDERSTANDING. ALL UNIVERSAL PRECAUTIONS IN PLACE.
[2019-11-30] MEDS: QUEtiapine FUMARATE 25 MG TAB PO SCH (22:01)
[2019-11-30] MEDS ORDERED: LORazepam 1 MG TAB PO ONE (23:55)
[2019-12-01] VITALS: BP 126/80
--- NOTE | 2019-12-01 00:30 | NUR ---
PT C/O OF FEELING ANXIOUS WITH HEAVINESS IN HIS CHEST, PT APPEARED RESTLESS AND WAS PACING AROUND THE ROOM IN A VERY LIGHT SWEAT. SPOKE WITH MD RESIDENT CHAVEZ , WHOM ORDERED AN EXTRA ATIVAN 1MG , WHICH WAS GIVEN AT THIS TIME.
--- NOTE | 2019-12-01 05:00 | NUR ---
PT GIVEN ORDERED ATIVAN, WELL BLOOD DRAWS. PT FINGERSTICK IS 85 AND HE WAS GIVEN EXTRA JUICE AND COFFEE.
[2019-12-01] MEDS: LORazepam 1 MG TAB PO SCH ×2 (05:36→13:54)
[2019-12-01] MEDS: BLOOD GLUCOSE MONITORING 1 DEV DEV FS SCH ×2 (05:44→11:21)
[2019-12-01 06:53] LABS: EOSINOPHILS # (AUTO) 0.1 K/uL (0-0.4); EOSINOPHILS % (AUTO) 1.5 % (0.0-4.0); HEMATOCRIT 38.7 % (36-52); HEMOGLOBIN 13.7 g/dL (12.0-18.0); LYMPHOCYTES # (AUTO) 1.8 K/uL (2.0-11.5); LYMPHOCYTES % (AUTO) 39.1 % (20.5-51.1); MEAN CORPUSCULAR HEMOGLOBIN 32 pg (27-31); MEAN CORPUSCULAR HGB CONC 35 g/dL (33-37); MEAN CORPUSCULAR VOLUME 90.1 fL (80-94); MONOCYTES # (AUTO) 0.4 K/uL (0.8-1.0); MONOCYTES % (AUTO) 8.7 % (1.7-9.3); NEUTROPHILS # (AUTO) 2.3 K/uL (1.8-7.7); NEUTROPHILS % (AUTO) 49.7 % (42.2-75.2); PLATELET COUNT (AUTO) 270 K/uL (140-450); RED CELL DISTRIBUTION WIDTH 12.7 % (11.6-13.7); WHITE BLOOD COUNT (AUTO) 4.6 K/uL (4.8-10.8)
--- NOTE | 2019-12-01 07:00 | NUR ---
RECEIVED REPORT FROM REMOTE RUBY ON RAILS DEVELOPER NURSE ACOSTA. PT RESTING IN BED, AOX4, AMBULATORY. DISCUSSED PLAN OF CARE AND VERBALIZED UNDERSTANDING. IV ON LEFT AC #20G S/L. SKIN INTACT. NO S/S OF RESPIRATORY DISTRESS OR DISCOMFORT NOTED AT THIS TIME. WILL CONTINUE TO MONITOR.
[2019-12-01 07:40] LABS: ANION GAP 11.2 (8-16); CARBON DIOXIDE 31.5 mmol/L (21-32); CREATININE 0.9 mg/dL (0.6-1.3); POTASSIUM 3.7 mmol/L (3.5-5.1)
[2019-12-01 07:55] LABS: PHOSPHORUS 5.3 mg/dL (2.5-4.9)
[2019-12-01 08:00] VITALS: BP 167/96
[2019-12-01] MEDS: FOLIC ACID 1 MG TAB PO SCH (08:55)
[2019-12-01] MEDS: SERTRALINE 50 MG TAB PO SCH (08:55)
[2019-12-01] MEDS: THIAMINE 100 MG TAB PO SCH (08:55)
[2019-12-01] MEDS: DOCUSATE SODIUM 100 MG GELCAP PO SCH (08:55)
[2019-12-01] MEDS: ATORVASTATIN 20 MG TAB PO SCH (08:56)
[2019-12-01] MEDS: ENALAPRIL 10 MG TAB PO SCH (08:56)
[2019-12-01] MEDS: MULTIVITAMIN 1 TAB PO SCH (08:56)
[2019-12-01] MEDS: INSULIN LANTUS 100 UNITS/ML 10 ML VIAL SUBQ SCH (09:01)
--- NOTE | 2019-12-01 09:01 | NUR ---
SCHEDULED MEDICATIONS GIVEN AND TOLERATED WELL. NO S/S OF RESPIRATORY DISTRESS OR DISCOMFORT NOTED AT THIS TIME. WILL CONTINUE TO MONITOR.
[2019-12-01] MEDS ORDERED: CALCIUM ACETATE 667 MG TAB PO SCH (10:00)
--- NOTE | 2019-12-01 10:21 | NUR ---
SCHEDULED MEDICATION PHOSLO GIVEN AND TOLERATED WELL. NO S/S OF RESPIRATORY DISTRESS OR DISCOMFORT NOTED AT THIS TIME. WILL CONTINUE TO MONITOR.
--- NOTE | 2019-12-01 11:21 | NUR ---
BOLUS GIVEN. PT TOLERATING WELL. NO S/S OF RESPIRATORY DISTRESS OR DISCOMFORT NOTED AT THIS TIME. WILL CONTINUE TO MONITOR.
[2019-12-01] MEDS: INSULIN LISPRO SLIDING SCALE 100 UNITS/ML VIAL SUBQ PRN (11:37)
--- NOTE | 2019-12-01 11:37 | NUR ---
BLOOD GLUCOSE 232- INSULIN COVERAGE GIVEN AND TOLERATED WELL. NO S/S OF RESPIRATORY DISTRESS OR DISCOMFORT NOTED AT THIS TIME. WILL CONTINUE TO MONITOR.
[2019-12-01] MEDS ORDERED: NACL 0.9% 500 ML IV ONE (13:00)
--- NOTE | 2019-12-01 13:54 | NUR ---
SCHEDULED MEDICATION ATIVAN GIVEN AND TOLERATED WELL. NO S/S OF RESPIRATORY DISTRESS OR DISCOMFORT NOTED AT THIS TIME. WILL CONTINUE TO MONITOR.
--- NOTE | 2019-12-01 14:15 | NUR ---
BP 111/81, HR 126. DR. TSANG AWARE AND WAS ORDERED TO TAKE BLOOD GLUCOSE - 95
--- NOTE | 2019-12-01 14:26 | NUR ---
BLOOD GLUCOSE 95- DR. JEFF ORDER BEFORE DISCHARGE
[2019-12-01] MEDS ORDERED: NACL 0.9% 1,000 ML IV ONE (15:00)
--- NOTE | 2019-12-01 16:25 | NUR ---
BP 135/96, HR 120 DR. JEFF AWARE ORDERED
--- NOTE | 2019-12-01 17:05 | NUR ---
DISCHARGE PAPERWORK GIVEN WELL SERVICE PET PAPERWORK. IV SITE DISCONTINUED, IV CANNULA INTACT. ID BANDS REMOVED. PT STABLE AT THIS TIME. REFUSED ASSISTANCE TO FRONT LOBBY.
--- NOTE | 2019-12-04 21:07 | NUR ---
LATE ENTRY FOR 11/27/2019 AT 0228. 0.5MG OF LORAZEPAM IVP. 1.5MG WASTED WITH SARAH SCHNEIDER RN.
== END 2019-12-01 17:05 | disposition home or self-care (01) | DRG 420 ==
LOC: MED 01:10 → MIC 03:02 → MTU 11-28 07:35
PROVIDERS: ADMIT General Practice; ATTEND General Practice
DX: E11.10 Type 2 diabetes mellitus with ketoacidosis without coma (principal); N17.0 Acute kidney failure with tubular necrosis; D68.59 Other primary thrombophilia; E83.42 Hypomagnesemia; E83.39 Other disorders of phosphorus metabolism; R45.851 Suicidal ideations; I10 Essential (primary) hypertension; L40.9 Psoriasis, unspecified; E87.6 Hypokalemia; F32.9 Major depressive disorder, single episode, unspecified; F17.200 Nicotine dependence, unspecified, uncomplicated; E86.0 Dehydration; E78.5 Hyperlipidemia, unspecified; F19.939 Other psychoactive substance use, unspecified with withdrawal, unspecified; F43.9 Reaction to severe stress, unspecified; F10.10 Alcohol abuse, uncomplicated; F15.10 Other stimulant abuse, uncomplicated; E05.80 Other thyrotoxicosis without thyrotoxic crisis or storm; Z91.14 Patient's other noncompliance with medication regimen; Z59.0 Homelessness; Z79.4 Long term (current) use of insulin; Z59.9 Problem related to housing and economic circumstances, unspecified; Z56.0 Unemployment, unspecified; Z88.8 Allergy status to other drugs, medicaments and biological substances; Z71.51 Drug abuse counseling and surveillance of drug abuser
CPT/HCPCS: 36415; 36600; 71045; 80048; 80053; 80305; 81001; 82009; 82150; 82803; 82948; 83036; 83690; 83735; 83880; 84100; 84132; 84439; 84443; 84484; 85025; 85610; 85730; 87081; 93005; 96361; 96365; 96375; 96376; 99285; J1200; J1644; J1815; J2001; J2060; J2270; J2405; J2765; J3475; J3480; J7030; Q0092